=== PATIENT | male | born 1950 | race Asian ===

== ENCOUNTER 2023-06-22 08:13 | Emergency (ER) | payer MEDICARE, BC, SELFPAY ==
[2023-06-22] VITALS (9 sets, daily range): BP systolic 114–153; BP diastolic 78–99
--- NOTE | 2023-06-22 10:51 | EDRN ---
Pt is a 72yo male with known hx of vertigo, on Meclizine, c/o 6 days of constant dizziness/room spinning. States the Meclizine is not helping. Dizziness is non-positional. Was noted to have momentary unsteadiness when getting up, but was able to
ambulate with a steady gait. Denies pain.
[2023-06-22 11:08] LABS: % Basophils 0.5 % (0-2); % Eosinophils 1.9 % (0-6); % Immature Granulocytes 0.4 % (0-0.5); % Lymphocytes 23.9 % (20.5-51.1); % Monocytes 7.3 % (1.7-9.3); Absolute Eosinophils 0.2 10^3/uL (0-0.7); Absolute Monocytes 0.6 10^3/uL (0.1-0.6); Absolute Neutrophils 5.5 10^3/uL (1.4-6.5); Hematocrit 41.7 % (39.0-52.0); Hemoglobin 13.7 g/dL (13.0-18.0); Mean Corp Hgb Conc. 32.9 g/dL (33.0-37.0); Mean Corpuscular Hgb 26.7 pg (27.0-31.0); Mean Corpuscular Volume 81.1 fL (80.0-94.0); Mean Platelet Volume 11.6 fL (7.4-10.4); Nucleated Red Blood Cells % 0 % (-); Platelet Count 115 10^3/uL (130-400); Red Blood Cell Count 5.14 10^6/uL (4.70-6.10); White Blood Cell Count 8.3 10^3/uL (4.8-10.8)
[2023-06-22 11:30] LABS: Troponin I < 0.012 ng/ml
[2023-06-22 11:33] LABS: ALT (SGPT) 21 U/L (0-50); AST (SGOT) 23 U/L (17-59); Albumin 3.9 g/dl (3.5-5.0); Alkaline Phosphatase 78 U/L (38-126); Blood Urea Nitrogen 23 mg/dl (9-20); Calcium 9.6 mg/dl (8.4-10.2); Carbon Dioxide 29 mmol/L (22-30); Chloride 105 mmol/L (98-107); Glucose 107 mg/dl (70-99); Magnesium 2.2 mg/dl (1.6-2.3); Potassium 4.8 mmol/L (3.5-5.1); Sodium 135 mmol/L (135-145); Total Bilirubin 0.7 mg/dl (0.2-1.3); Total Protein 6.7 g/dl (6.3-8.2); eGFR 57.65
--- NOTE | 2023-06-22 11:36 | ED.GENMED ---
History of Present Illness
<Spenser Perkins PA-C - Last Filed: 06/22/23 16:23>
General
Chief Complaint: Dizziness
Source: patient and spouse
Time Seen by Provider: 06/22/23 10:39
Travel History
Have you had any contact with someone who has COVID-19?: No
Do you have any symptoms of coronavirus? Fever > 100 degrees, chills, cough, shortness of breath, sore throat, loss of taste or smell, muscle aches, or headache?: No
History of Present Illness
History of Present Illness:
72-year-old male with past medical history of hypertension, hyperlipidemia, atrial fibrillation, AAA, diabetes presenting to the emergency department for evaluation of persistent vertigo x 7 days, no exacerbating or alleviating factors, unrelieved
with Antivert that was prescribed by primary care physician, different than typical vertigo patient was diagnosed with a few years ago as symptoms have been persistent and unrelieved with meds, usual vertigo only lasting about 1 day and associated
with a mild headache for about 3 days with the vertigo but headache now fully resolved. Spouse noted patient seemed to be unsteady with his gait this morning which is what brought him to the emergency department for further evaluation. Patient
denies any focal weakness or numbness, visual disturbances, chest pain, shortness of breath, palpitations, fevers or recent illnesses, neck pain or stiffness or any other concerns. Did not take any Antivert yet today.
Past History
<Spenser Perkins PA-C - Last Filed: 06/22/23 16:23>
Past History
ED Past Medical History: Arrthythmia, Cancer, HTN, Hypercholesterolemia and NIDDM
ED Past Surgical History: Cholecystectomy, Orthopedic and Other (AAA repair)
Social History
Tobacco: Smoker
Alcohol: None
Drug: None
Personal:
Living: with family
Employment: Employed
Family History
Family History: Hypertension and CAD
Review of Systems
<Spenser Perkins PA-C - Last Filed: 06/22/23 16:23>
Review of Systems
All Other Systems: ROS reviewed and negative except as documented in HPI and ROS
Phy Exam
<Spenser Perkins PA-C - Last Filed: 06/22/23 16:23>
Physical Exam
Physical Exam:
GENERAL: Alert , in no apparent distress
EYE: pupils equal and reactive, 3 mm bilateral, EOMI, leftward horizontal nystagmus noted
NECK: Supple, no significant adenopathy.
ENT: o/p clr, mmm.
CARDIAC: Regular rate and rhythm, no murmur.
LUNGS: Clear breath sounds bilaterally, no acute respiratory distress, no wheezes/rales/rhonchi
ABDOMEN: Soft, without focal tenderness, no r/g, no cvat
NEUROLOGICAL: Alert and oriented, ambulatory with steady gait without evidence for ataxia, finger-nose intact, [id number] intact, no speech deficit, sensation and strength intact and equal bilateral upper and lower extremity
SKIN: Warm and dry, skin intact.
MUSCULOSKELETAL: No edema, well perfused.
PSYCH: Normal and appropriate interaction.
Scores
<Spenser Perkins PA-C - Last Filed: 06/22/23 16:23>
Heart Failure Risk
Heart Failure Risk Score: Not Applicable
Heart Score for Chest Pain Patients
STEMI patient?: Not applicable
Withdrawal Assessment of Alcohol
Withdrawal Assessment Completed?: Not applicable
Course
<Spenser Perkins PA-C - Last Filed: 06/22/23 16:23>
Orders/Labs/Results
Orders:
Orders
06/22/23 09:02
CT Head W/o Iv Contrast Urgent
Comment:
Reason For Exam: vertigo x 7 days.
06/22/23 09:25
EKG [Electrocardiogram (*1)] Urgent
Reason for Study: Vertigo / Dizzy
06/22/23 09:26
EKG- Treatment ONCE
06/22/23 10:47
MRI Brain [MR Brain Without Contrast] Urgent
Comment:
Reason For Exam: persistent vertigo, hx of afib
Recent pill cam endoscopy?: No
06/22/23 10:55
Complete Blood Count/With Diff Urgent
Comprehensive Metabolic Panel Urgent
Magnesium Urgent
Troponin I Urgent
Abnormal Lab Results
06/22/23
10:55
MCH 26.7 L pg
(27.0-31.0)
MCHC 32.9 L g/dL
(33.0-37.0)
RDW 15.0 H %
(11.5-14.5)
Plt Count 115 L 10^3/uL
(130-400)
MPV 11.6 H fL
(7.4-10.4)
BUN 23 H mg/dl
(9-20)
Glucose 107 H mg/dl
(70-99)
06/22/23 10:55
06/22/23 10:55
Vital Signs
Initial and Last Documented VS:
Initial Vital Signs
Temp Pulse Resp BP Pulse Ox
98.2 F 68 20 144/98 98
06/22/23 08:29 06/22/23 08:29 06/22/23 08:29 06/22/23 08:29 06/22/23 08:29
Last Documented Vital Signs
Temp Pulse Resp BP Pulse Ox
98.2 F 61 16 153/79 97
06/22/23 08:29 06/22/23 10:53 06/22/23 10:53 06/22/23 16:00 06/22/23 16:00
<Radha Erwin MD - Last Filed: 06/22/23 11:45>
Orders/Labs/Results
Orders:
Orders
06/22/23 09:02
CT Head W/o Iv Contrast Urgent
Comment:
Reason For Exam: vertigo x 7 days.
06/22/23 09:25
EKG [Electrocardiogram (*1)] Urgent
Reason for Study: Vertigo / Dizzy
06/22/23 09:26
EKG- Treatment ONCE
06/22/23 10:47
MRI Brain [MR Brain Without Contrast] Urgent
Comment:
Reason For Exam: persistent vertigo, hx of afib
Recent pill cam endoscopy?: No
06/22/23 10:55
Complete Blood Count/With Diff Urgent
Comprehensive Metabolic Panel Urgent
Magnesium Urgent
Troponin I Urgent
Abnormal Lab Results
06/22/23
10:55
MCH 26.7 L pg
(27.0-31.0)
MCHC 32.9 L g/dL
(33.0-37.0)
RDW 15.0 H %
(11.5-14.5)
Plt Count 115 L 10^3/uL
(130-400)
MPV 11.6 H fL
(7.4-10.4)
BUN 23 H mg/dl
(9-20)
Glucose 107 H mg/dl
(70-99)
06/22/23 10:55
06/22/23 10:55
Vital Signs
Initial and Last Documented VS:
Initial Vital Signs
Temp Pulse Resp BP Pulse Ox
98.2 F 68 20 144/98 98
06/22/23 08:29 06/22/23 08:29 06/22/23 08:29 06/22/23 08:29 06/22/23 08:29
Last Documented Vital Signs
Temp Pulse Resp BP Pulse Ox
98.2 F 61 16 153/79 97
06/22/23 08:29 06/22/23 10:53 06/22/23 10:53 06/22/23 16:00 06/22/23 16:00
<Spenser Perkins PA-C - Last Filed: 06/22/23 16:23>
MDM/Problems Addressed
Differential Diagnosis Includes:
BPPV, labyrinthitis, orthostasis, CVA
MDM/Problems Addressed:
72-year-old male presenting to the emergency department with persistent vertigo x 7 days, attempted his usual remedies without any relief. Vertigo normally not lasting this long which is what prompted visit today. Physical exam reveals a leftward
horizontal nystagmus however was largely unremarkable. CT of the head was ordered from triage as well as EKG which are unremarkable. Due to the persistent nature of the symptoms would like to obtain an MRI to evaluate for cerebellar CVA.
Disposition pending results of MRI.
Chronic conditions affecting care: DM, HTN and Arrhythmia
<Spenser Perkins PA-C - Last Filed: 06/22/23 16:23>
*Radiology
Radiology exam reviewed: radiology read reviewed
*Pulse Oximetry
Patient hypoxic: no
*EKG
Interpreted by ED Provider?: Yes
Comparison EKG: no changes
Heart Rate: 57
Rate: normal
Rhythm: sinus
[place]: left axis deviation
QRS Pattern: other (Bifascicular block)
*Iso Coordinator Interpretation
Rate: normal
Rhythm: sinus
*Critical Care Note
Total Time (30-74mins, 75-104mins- exclusive of procedures): Not Applicable
Data Reviewed
Review of Other/Old Records Reveals: Labs, Operative Reports and Discharge Summary
Source: patient
<Spenser Perkins PA-C - Last Filed: 06/22/23 16:23>
Patient Management
Escalation/DeEscalation of care consider admission/obs:
On multiple reevaluations patient maintains his symptoms are mostly resolved and he is feeling well. Patient's MRI ultimately came back without any acute pathology which confirms my suspicion that this was likely a peripheral vertigo and not
central. I will prescribe the patient scopolamine to use as needed as well as provided patient with a prescription for outpatient vestibular therapy. They will follow-up with patient's primary care physician. Stable for discharge home.
ED Attending Note
<Spenser Perkins PA-C - Last Filed: 06/22/23 16:23>
-
Portions of this chart may have been created with voice recognition software.� Occasional wrong word or��sound alike� substitutions may have occurred due to the inherent limitations of voice recognition software.
<Radha Erwin MD - Last Filed: 06/22/23 11:45>
ED Attending Note
Patient seen and examined by attending physician: Yes
I performed the substantive portion of visit, reviewed & personally made and approve the management plan that is documented in note by myself or HAYDEE.: Yes
ED Attending Note:
Patient's heart sounds regular. Lungs are clear. Neurological exam is normal. However, on walking patient felt a little dizzy and was stumbling.
Discharge Plan
Departure
Patient Disposition: Home (Routine Discharge)
Date of Disposition: 06/22/23
Time of Disposition: 16:15
Patient with high blood pressure during this ER visit?: Yes
Discharge Problem:
Vertigo
Instructions: Vertigo (a Type of Dizziness) (DC)
Prescriptions:
New
scopolamine base 1 mg over 3 days patch 3 day
1 patch transdermal Q3D PRN (Reason: dizziness) Qty: 4 0RF
No Action
metformin 500 MG tablet
500 mg PO BID@0800,1700
Hold Instructions: Resume on 06/18/22.
atorvastatin 10 MG tablet
10 mg PO HS
lisinopril 20 MG tablet
20 mg PO BID
spironolactone 25 MG tablet
12.5 mg PO DAILY
amlodipine 10 MG tablet
10 mg PO DAILY
Eliquis 5 MG tablet
5 mg PO BID
cyanocobalamin (vitamin B-12) 1,000 MCG tablet
1,000 mcg PO DAILY
ascorbic acid (vitamin C) [Vitamin C] 500 MG tablet
1,000 mg PO DAILY
PreserVision AREDS 1 CAP capsule
1 cap PO BID
metoprolol succinate 100 mg Tablet Extended Release 24 Hr
100 mg PO DAILY
therapeutic multivitamin Tablet
1 tab PO DAILY
docusate sodium [Colace] 100 mg Capsule
100 mg PO QPM
cholecalciferol (vitamin D3) [Vitamin D3] 25 mcg (1,000 unit) Tablet
25 mcg PO DAILY
Referrals:
Eusebio Sanchez MD [Family Provider] -
Interventions
Interventions:
*Risk Screen - Suicide Last Done: 06/22/23 10:50
*General Assessment Last Done: 06/22/23 10:49
*Neglect/Abuse Screening Last Done: 06/22/23 10:50
*ED COVID-19 Vaccine History Last Done: 06/22/23 10:49
ED- Neurological Assessment Last Done: 06/22/23 10:50
ED Swallowing Screen Last Done: 06/22/23 10:50
== END 2023-06-22 16:26 | disposition home or self-care (01) ==
LOC: EMR 08:13
PROVIDERS: Physician Assistant Medical; EMERGENCY PHYSICIAN Emergency Medicine; FAMILY PHYSICIAN Internal Medicine
DX: R42 Dizziness and giddiness (principal); I10 Essential (primary) hypertension; E78.00 Pure hypercholesterolemia, unspecified; I48.91 Unspecified atrial fibrillation; E11.9 Type 2 diabetes mellitus without complications; F17.200 Nicotine dependence, unspecified, uncomplicated; H55.09 Other forms of nystagmus; Z82.49 Family history of ischemic heart disease and other diseases of the circulatory system; Z86.79 Personal history of other diseases of the circulatory system; Z90.49 Acquired absence of other specified parts of digestive tract
CPT/HCPCS: 99284; 70450; 70551; 80053; 83735; 84484; 85025; 93005

== ENCOUNTER → 2023-06-25 07:30 | Outpatient (REF) | payer MEDICARE, BC, SELFPAY | LOC: RAD 07:30 | PROVIDERS: ATTENDING PHYSICIAN Surgery Vascular Surgery; FAMILY PHYSICIAN Internal Medicine | DX: I71.40 Abdominal aortic aneurysm, without rupture, unspecified (principal) | CPT/HCPCS: 76770 ==

== ENCOUNTER 2023-12-09 16:03 | Emergency (ER) | payer MEDICARE, BC, SELFPAY ==
[2023-12-09 16:04] VITALS: BP 150/89
--- NOTE | 2023-12-09 17:23 | ED.GENMED ---
History of Present Illness
General
Chief Complaint: Musculo-Skeletal Complaint
Time Seen by Provider: 12/09/23 16:47
History of Present Illness
History of Present Illness:
72-year-old male presents to the emergency department for evaluation of presumably nontraumatic neck pain that began yesterday but worsened dramatically today. Relates that he has pain to the right side of the neck radiating to the right trapezius
and right shoulder. Denies any recent injuries or falls. Has no upper extremity paresthesias or weakness. Pain is minimal when he holds the neck in a neutral position. Has been taking Tylenol without relief. Cannot take NSAIDs due to Eliquis
use. Denies fevers, photophobia, vision changes, nausea, or vomiting.
Past History
Past History
ED Past Medical History: Arrthythmia, Cancer, HTN, Hypercholesterolemia and NIDDM
ED Past Surgical History: Cholecystectomy, Orthopedic and Other (AAA repair)
Social History
Tobacco: Smoker
Alcohol: None
Drug: None
Personal:
Living: with family
Employment: Employed
Family History
Family History: Hypertension and CAD
Review of Systems
Review of Systems
Allergies reviewed?: Yes
All Other Systems: ROS reviewed and negative except as documented in HPI and ROS
Phy Exam
Physical Exam
Physical Exam:
GEN: Well appearing, NAD, WDWN
HEENT: Oral mucosa moist, no scleral icterus
Cardiac: Regular rate
Lung: No respiratory distress, no tachypnea
MSK: No gross deformity or injuries. Reproducible tenderness to the right paraspinous musculature of the neck, no midline tenderness. Patient is unable to perform any significant degree of range of motion secondary to pain. No pain with passive
range of motion of the right shoulder, bilateral upper extremity strength is 5 out of 5 in all huitron
Skin: Good color, no pallor or jaundice, no rashes
Neuro: AO x3, moves all extremities freely
Psych: Calm, cooperative
Course
Orders/Labs/Results
Orders:
Orders
12/09/23 16:07
CR Cervical Spine 2 or 3 Vw Urgent
Comment:
Reason For Exam: pain
12/09/23 16:08
Shoulder, Right 2 Views [CR Shoulder - Right Min 2 View] Urgent
Comment:
Reason For Exam: pain
12/09/23 17:23
Acetaminophen [Tylenol] 1,000 mg PO NOW STA
Oxycodone [Roxicodone] 5 mg PO NOW STA
Vital Signs
Initial and Last Documented VS:
Initial Vital Signs
Temp Pulse Resp BP Pulse Ox
97.9 F 74 20 150/89 98
12/09/23 16:04 12/09/23 16:04 12/09/23 16:04 12/09/23 16:04 12/09/23 16:04
Last Documented Vital Signs
Temp Pulse Resp BP Pulse Ox
97.9 F 74 20 150/89 98
12/09/23 16:04 12/09/23 16:04 12/09/23 16:04 12/09/23 16:04 12/09/23 16:04
MDM/Problems Addressed
MDM/Problems Addressed:
Patient with no signs or symptoms of intracranial pathology or meningitis. His pain improved after being given analgesics in the emergency department. Likely cervical muscle spasm, as he cannot take NSAIDs will trial a course of steroids and
provided short course of opiates for pain
*Critical Care Note
Total Time (30-74mins, 75-104mins- exclusive of procedures): Not Applicable
ED Attending Note
-
Portions of this chart may have been created with voice recognition software.� Occasional wrong word or��sound alike� substitutions may have occurred due to the inherent limitations of voice recognition software.
Discharge Plan
Departure
Patient Disposition: Home (Routine Discharge)
Date of Disposition: 12/09/23
Time of Disposition: 18:53
Patient with high blood pressure during this ER visit?: Yes
Discharge Problem:
Cervical muscle strain
Instructions: Cervical Muscle Strain
Prescriptions:
New
methylprednisolone [Medrol (Mikey)] 4 mg tablets,dose pack
See Rx Instructions .ROUTE .COMPLEX Qty: 21 0RF
Rx Instructions:
orally per package directions
oxycodone-acetaminophen [Percocet] 5-325 mg tablet
1 tab PO Q6HPRN PRN (Reason: pain) Qty: 12 0RF
No Action
metformin 500 MG tablet
500 mg PO BID@0800,1700
Hold Instructions: Resume on 06/18/22.
atorvastatin 10 MG tablet
10 mg PO HS
lisinopril 20 MG tablet
20 mg PO BID
spironolactone 25 MG tablet
12.5 mg PO DAILY
amlodipine 10 MG tablet
10 mg PO DAILY
Eliquis 5 MG tablet
5 mg PO BID
cyanocobalamin (vitamin B-12) 1,000 MCG tablet
1,000 mcg PO DAILY
ascorbic acid (vitamin C) [Vitamin C] 500 MG tablet
1,000 mg PO DAILY
PreserVision AREDS 1 CAP capsule
1 cap PO BID
metoprolol succinate 100 mg Tablet Extended Release 24 Hr
100 mg PO DAILY
therapeutic multivitamin Tablet
1 tab PO DAILY
docusate sodium [Colace] 100 mg Capsule
100 mg PO QPM
cholecalciferol (vitamin D3) [Vitamin D3] 25 mcg (1,000 unit) Tablet
25 mcg PO DAILY
scopolamine base 1 mg over 3 days patch 3 day
1 patch transdermal Q3D PRN (Reason: dizziness) Qty: 4 0RF
Referrals:
Eusebio Sanchez MD [Family Provider] -
Interventions
Interventions:
*Risk Screen - Suicide Last Done: 12/09/23 16:04
*General Assessment Last Done: 12/09/23 16:04
*Neglect/Abuse Screening Last Done: 12/09/23 16:04
*ED COVID-19 Vaccine History Last Done: 12/09/23 16:38
*Nursing Disposition Last Done: 12/09/23 19:04
ED-Musculoskeletal Assessment Last Done: 12/09/23 16:38
Discharge Date and Time
Discharge Date/Time: 12/09/23 19:04
Print Language: JAPANESE
[2023-12-09] MEDS: TYLENOL 1000 MG PO (17:48)
[2023-12-09] MEDS: ROXICODONE 5 MG PO (17:48)
== END 2023-12-09 19:04 | disposition home or self-care (01) ==
LOC: EMR 16:03
PROVIDERS: EMERGENCY PHYSICIAN Emergency Medicine; FAMILY PHYSICIAN Internal Medicine
DX: S16.1XXA Strain of muscle, fascia and tendon at neck level, initial encounter (principal); X58.XXXA Exposure to other specified factors, initial encounter; I10 Essential (primary) hypertension; E78.00 Pure hypercholesterolemia, unspecified; E11.9 Type 2 diabetes mellitus without complications
CPT/HCPCS: 99283; 72040; 73030

== ENCOUNTER → 2024-07-01 07:41 | Outpatient (REF) | payer MEDICARE, BC, SELFPAY | LOC: RAD 07:41 | PROVIDERS: ATTENDING PHYSICIAN Surgery Vascular Surgery; FAMILY PHYSICIAN Internal Medicine | DX: I71.40 Abdominal aortic aneurysm, without rupture, unspecified (principal) | CPT/HCPCS: 76770 ==

== ENCOUNTER → 2025-04-30 06:26 | Outpatient (REF) | payer MEDICARE, BC, SELFPAY | LOC: RAD 06:26 | PROVIDERS: ATTENDING PHYSICIAN Surgery Vascular Surgery; FAMILY PHYSICIAN Internal Medicine | DX: I71.40 Abdominal aortic aneurysm, without rupture, unspecified (principal) | CPT/HCPCS: 76770 ==